=== PATIENT | male | born 1990 | race American Indian/Alaskan Native ===

== ENCOUNTER 2022-02-05 23:33 | Emergency (ER) | payer SELFPAY ==
[2022-02-06 00:22] VITALS: BP 116/77
== END 2022-02-06 03:55 | disposition left against medical advice (07) ==
LOC: ED 23:33
DX: S31.815A Open bite of right buttock, initial encounter (principal); Z53.21 Procedure and treatment not carried out due to patient leaving prior to being seen by health care provider; W54.0XXA Bitten by dog, initial encounter; Y93.89 Activity, other specified; Y92.89 Other specified places as the place of occurrence of the external cause; Y99.8 Other external cause status